=== PATIENT | male | born 1960 | race Caucasian/White ===

== ENCOUNTER 2023-10-30 07:09 | Emergency (ER) | payer BC, SELFPAY ==
[2023-10-30 07:18] VITALS: BP 189/114
[2023-10-30 08:12] VITALS: BP 181/111
--- NOTE | 2023-10-30 08:29 | ED.GENMED ---
History of Present Illness
General
Chief Complaint: Back Pain
Source: patient
Exam Limitations: none
Time Seen by Provider: 10/30/23 08:03
Travel History
Have you had any contact with someone who has COVID-19?: No
Do you have any symptoms of coronavirus? Fever > 100 degrees, chills, cough, shortness of breath, sore throat, loss of taste or smell, muscle aches, or headache?: No
History of Present Illness
History of Present Illness:
See MDM
Past History
Past History
ED Past Medical History: HTN
ED Past Surgical History: Other
Social History
Tobacco: Non-smoker
Alcohol: None
Phy Exam
Physical Exam
Physical Exam:
See MDM
Course
Orders/Labs/Results
Orders:
Orders
10/30/23 08:26
Diazepam [Valium] 5 mg PO NOW STA
Lumbar Spine Complete, 4 View [CR Lumbar Spine Comp Min 4 Vw*] Urgent
Comment:
Reason For Exam: Left lower back pain
10/30/23 10:33
Dexamethasone Pf [Decadron] 10 mg PO NOW STA
10/30/23 10:37
Complete Blood Count/With Diff Urgent
Comprehensive Metabolic Panel Urgent
10/30/23 11:57
Oxycodone/Acetaminophen [Percocet 5/325] 1 tablet PO NOW STA
Abnormal Lab Results
10/30/23
10:37
Absolute Neuts (auto) 6.7 H 10^3/uL
(1.4-6.5)
Neutrophils % 78.6 H %
(42.2-75.2)
Lymphocytes % 15.4 L %
(20.5-51.1)
10/30/23 10:37
10/30/23 10:37
Vital Signs
Initial and Last Documented VS:
Initial Vital Signs
Temp Pulse Resp BP Pulse Ox
98.2 F 61 18 189/114 97
10/30/23 07:18 10/30/23 07:18 10/30/23 07:18 10/30/23 07:18 10/30/23 07:18
Last Documented Vital Signs
Temp Pulse Resp BP Pulse Ox
98.2 F 55 16 163/96 99
10/30/23 07:18 10/30/23 12:12 10/30/23 12:12 10/30/23 12:12 10/30/23 12:12
MDM/Problems Addressed
Differential Diagnosis Includes:
HPI and MDM Narrative:
63-year-old male presenting with left-sided back pain that radiates down his leg. This has been ongoing for months. Patient is frustrated because he feels that his primary care is not doing much. Patient states the pain goes into his calf. It is
worse at nighttime. He has been ruled out for DVT. Patient is frustrated. 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
On exam, patient has mild spasm to the left lumbar musculature. He has negative straight leg raise. There is no calf tenderness on my exam. Distal pulses are intact and sensation grossly intact. Will obtain x-ray and treat spasm with Valium
since he has failed metaxalone in the past. I am hesitant to start NSAIDs given his uncontrolled high blood pressure and patient's concern for chronic kidney disease
Physical exam
General: Well appearing and non-toxic
HEENT: protecting airway
Neck: appears supple
CV: No evidence of cyanosis
Resp: No accessory muscle use
Abd: Non-distended back: Spasm to left lumbar musculature. No midline tenderness. No rash
Extremities: No deformities. No clinical signs of DVT. Pulses intact to left leg
Neuro: alert
Psych: Normal affect
Skin: Intact
Problems Addressed including Acute and Chronic Conditions affecting care:
1. Back pain
Acuity: acute
Prognosis: stable
Details: Likely sciatica versus spasm. Will give Valium and obtain x-ray
Updates
Had a long talk with patient in regards to outpatient physical therapy and speaking spine about chronic back pain. He would likely benefit from an MRI as an outpatient
Patient seems frustrated that he still has back pain after Valium and steroids. We discussed that his blood work shows no evidence of kidney injury and he can take NSAIDs if needed. Will give one-time dose of Percocet here
Differential Diagnosis (but not limited to):
Testing considered:
Drug therapy (if applicable): OTC meds, please see d/c instruction regarding Rx drugs
Amount and/or Complexity of Data Reviewed
Clinical info obtained from: Patient
External data reviewed: N/A
Labs I independently reviewed (but not limited to): Cr normal
Radiology: X-ray independently reviewed: No lumbar fracture noted. Chronic arthritic changes noted
Pulse Ox: not hypoxic
EKG independently reviewed: N/A
Fruit Sprayer: N/A
Critical Care: N/A
Risk of Complication:
Social Determinants of health: Good social support
Discussed with other providers: N/A
Escalation of Care includes Admit/Obs: After being observed in the Emergency Department, pt stable for discharge.
Occasional wrong word or 'sound a like' substitutions may have occurred due to the inherent limitations of voice recognition software. Read the chart carefully and recognize, using context, where substitutions have occurred.
*Critical Care Note
Total Time (30-74mins, 75-104mins- exclusive of procedures): Not Applicable
ED Attending Note
-
Portions of this chart may have been created with voice recognition software.� Occasional wrong word or��sound alike� substitutions may have occurred due to the inherent limitations of voice recognition software.
Discharge Plan
Departure
Patient Disposition: Home (Routine Discharge)
Date of Disposition: 10/30/23
Time of Disposition: 12:04
Patient with high blood pressure during this ER visit?: Yes
Discharge Problem:
Back pain
Instructions: Low Back Pain (DC), BLOOD PRESSURE
Prescriptions:
New
prednisone 10 mg tablet
See Rx Instructions .ROUTE .COMPLEX Qty: 45 0RF
Rx Instructions:
5 tabs day 1-3, 4 tabs day 4-6, 3 tabs day 7-9, 2 tabs day 10-12, 1 tab day 13-15
diazepam [Valium] 5 mg tablet
5 mg PO BID PRN (Reason: muscle spasm) Qty: 14 0RF
Referrals:
Xu Enamorado MD [Active] -
Activity Restrictions/Additional Instructions:
Please return for any worsening symptoms.
You may return at any time if you have further concerns.
Please follow up with your doctor at the first available appointment, preferably this week. Please talk about physical therapy and MRI. Please make an appointment with the spine doctor if your symptoms persist.
Thank you for choosing [facility].
Interventions
Interventions:
*Risk Screen - Suicide Last Done: 10/30/23 07:18
*General Assessment Last Done: 10/30/23 07:18
*Neglect/Abuse Screening Last Done: 10/30/23 07:18
ED- Fall Risk Assessment Last Done: 10/30/23 08:25
*ED COVID-19 Vaccine History Last Done: 10/30/23 08:09
ED-Musculoskeletal Assessment Last Done: 10/30/23 08:09
[2023-10-30] MEDS: VALIUM 5 MG PO (08:34)
[2023-10-30 09:44] VITALS: BP 151/97
[2023-10-30] MEDS: DECADRON 10 MG PO (10:42)
[2023-10-30 10:46] LABS: % Basophils 0.3 % (0-2); % Eosinophils 0.3 % (0-6); % Immature Granulocytes 0.3 % (0-0.5); % Lymphocytes 15.4 % (20.5-51.1); % Monocytes 5.1 % (1.7-9.3); % Neutrophils 78.6 % (42.2-75.2); Absolute Lymphocytes 1.3 10^3/uL (1.2-3.4); Absolute Monocytes 0.4 10^3/uL (0.1-0.6); Absolute Neutrophils 6.7 10^3/uL (1.4-6.5); Hematocrit 43.2 % (39.0-52.0); Hemoglobin 14.8 g/dL (13.0-18.0); Mean Corp Hgb Conc. 34.3 g/dL (33.0-37.0); Mean Corpuscular Volume 87.6 fL (80.0-94.0); Mean Platelet Volume 10.2 fL (7.4-10.4); Nucleated Red Blood Cells % 0 % (-); Platelet Count 220 10^3/uL (130-400); Red Blood Cell Count 4.93 10^6/uL (4.70-6.10); Red Cell Dist. Width 13.1 % (11.5-14.5); White Blood Cell Count 8.6 10^3/uL (4.8-10.8)
[2023-10-30 11:09] LABS: ALT (SGPT) 21 U/L (0-50); AST (SGOT) 29 U/L (17-59); Albumin 4.2 g/dl (3.5-5.0); Alkaline Phosphatase 73 U/L (38-126); Blood Urea Nitrogen 17 mg/dl (9-20); Calcium 9.2 mg/dl (8.4-10.2); Carbon Dioxide 25 mmol/L (22-30); Chloride 107 mmol/L (98-107); Glucose 99 mg/dl (70-99); Potassium 4.2 mmol/L (3.5-5.1); Sodium 137 mmol/L (135-145); Total Bilirubin 0.8 mg/dl (0.2-1.3); Total Protein 7.4 g/dl (6.3-8.2); eGFR > 60.00
[2023-10-30] MEDS: PERCOCET 5/325 1 TABLET PO (12:09)
[2023-10-30 12:12] VITALS: BP 163/96
== END 2023-10-30 12:27 | disposition home or self-care (01) ==
LOC: EMR 07:09
PROVIDERS: EMERGENCY PHYSICIAN Student in an Organized Health Care Education/Training Program; FAMILY PHYSICIAN Family Medicine
DX: M54.9 Dorsalgia, unspecified (principal); I12.9 Hypertensive chronic kidney disease with stage 1 through stage 4 chronic kidney disease, or unspecified chronic kidney disease; N18.9 Chronic kidney disease, unspecified
CPT/HCPCS: 99283; 72110; 80053; 85025